=== PATIENT | female | born 1955 | race Caucasian/White ===

== ENCOUNTER → 2023-10-05 07:07 | Outpatient (REF) | payer OTHER, SELFPAY | LOC: MRI 07:07 | PROVIDERS: ATTENDING PHYSICIAN Orthopaedic Surgery; FAMILY PHYSICIAN Family Medicine | DX: M54.16 Radiculopathy, lumbar region (principal) | CPT/HCPCS: 72148 ==

== ENCOUNTER 2023-12-16 06:09 | Inpatient (IN) | payer OTHER, SELFPAY ==
--- NOTE | 2023-11-11 10:26 | CM ---
Patient is scheduled for lumbar spine surgery on 12/16/23. Spoke with patient prior to surgery via telephone. Introduced role of the Orthopedic Navigator. Patient reports that she lives with her daughter in a two story home. There are two steps to
enter and one step into the kitchen. She plans to stay on the first floor. She currently functions independently. She has a rolling walker, cane, hip kit and raised toilet seat. She had VN services through [facility] after her prior THR (done at an
outside facility). PCP is Donovan Lacy.
Discussed orthopedic program, post surgical plans and tentative plan for patient to return home when directed by surgeon. Patient is in agreement with tentative plan and will have support from her daughter when she goes home.
Plan: Orthopedic Navigator will remain available to assist with the care of patient and will reassess discharge needs after surgery.
[2023-11-25 07:41] VITALS: BMI 34.0
--- NOTE | 2023-11-25 08:37 | HPS.HSE ---
Family Physician
-
Family Physician: Donovan Lacy
Chief Complaint
-
Lumbar spondylolisthesis and stenosis with radiculopathy.
History of Present Illness
The patient is a 68 year old female presenting today for lumbar spondylolisthesis and stenosis with radiculopathy. The patient reports significant low back pain which radiates into her bilateral thighs. Her thigh pain is reported worse on
the right side. Her pain has progressively worsened over time despite multiple conservative treatment measures. These conservative treatment measures include self therapeutic exercises, activity modification, multiple epidural steroid injections,
medical management with Tylenol and NSAIDs, and the application of ice and/or heat. Her current pain greatly interferes with her activities of daily living and is overall impacting her quality of life. A recent lumbar MRI in September 2023 demonstrated
a 6 mm synovial cyst in the posterior spinal canal at L3-4, causing minimal compression along the cauda equina nerve roots. Also seen on MRI was significant degenerative disc and joint disease at L4-5, causing mild compression of the L4 nerve roots
bilaterally, right greater than left, and a slight increase in central canal and lateral recess stenosis. She was determined to be in need of a L3-L5 decompression and a L4-L5 transforaminal lumbar interbody fusion. She denies any current complaints
today such as chest pain, shortness of breath, palpitations, nausea, vomiting, diarrhea, lightheadedness, dizziness, cough, sore throat, or fever.
Medical History
Past Medical History
Past Medical History: Reports Other
Additional Past Medical History:
1. Lumbar spondylolisthesis and stenosis with radiculopathy.
2. Hypertension.
3. Mild tricuspid regurgitation.
4. GERD.
5. Colon polyps.
6. Diverticulosis.
7. Hepatic cyst.
8. Osteoarthritis, status post right total hip arthroplasty, 07/2022, by Dr. Eze Nieto.
9. Multinodular goiter.
10. Basal cell carcinoma, back, status post multiple excisions.
11. Osteopenia.
12. Mild hypercalcemia.
13. Obesity, BMI 34.0.
Past Surgical History: Reports Other
Additional Past Surgical History:
1. Right total hip arthroplasty, 07/2022, by Dr. Eze Nieto.
2. Right carpal tunnel release.
3. x2.
4. Hernia repair in infancy.
5. Right hemithyroidectomy.
6. Colonoscopy x2.
Social History
Tobacco: Non-smoker
Alcohol: Other (She reports social alcohol use on the weekends. )
Living: Other (She lives in a 2 story home with her daughter. )
Family History
Family History: Not pertinent
Allergies / Home Medications
Allergy/Medication List:
Home medications:
1. Aspirin 81 mg p.o. daily.
2. Cholecalciferol 125 mcg p.o. daily.
3. Benadryl 25 mg p.o. at bedtime.
4. Metoprolol Succinate 25 mg p.o. twice a day.
5. Centrum multivitamin 1 tablet p.o. daily.
6. Naproxen sodium 440 mg p.o. daily as needed.
7. Olmesartan-hydrochlorothiazide 40-25 mg, 1 tablet p.o. daily.
8. Probiotic 1 capsule p.o. daily.
Allergies: Percocet. Celebrex.
Adverse drug reactions: BRAYDON inhibitors (cough).
Review of Systems
-
A 12 point ROS was completed and negative except as noted: Yes
Physical Exam
Vital Signs
Blood pressure 138/98. Heart rate 70. Respirations 18. Pulse ox 97%.
Height 5 feet, 1 inch. weight 81.6 kg. BMI 34.0.
Physical Exam
General: Well Developed, Well Nourished and No Apparent Distress
HEENT: NormoCephalic, Moist mucous membranes, Atraumatic and PERRLA
Respiratory: Clear
Cardiac: Regular Rhythm
GI: Soft, Non Tender, Non Distended and Other (Obese. )
Musculoskeletal: Other (Lower back: No visible or palpable masses. No stepoffs. Midline and bilateral paraspinal lumbar tenderness to palpation. Negative straight leg test. Bilateral lower extremity strength 5/5. Deep tendon reflexes 2/2. Slightly
antalgic gait noted. )
Skin: Warm and Dry
Neuro: AO x 3 and Nonfocal/grossly intact
Laboratory Results
-
DIAGNOSTIC STUDIES as of 11/25/2023: White blood cell count 4.9. Hemoglobin 13.8. Platelet count 287,000. PT 12.8. INR 0.98. Sodium 136. Potassium 4.2. BUN 15. Creatinine 0.9. Glucose 94. Calcium 10.7. AST 35. ALT 28. Albumin 4.8. Urinalysis
unremarkable. MRSA screen negative.
EKG 11/25/2023: Normal sinus rhythm.
Echocardiogram 02/12/2018: Normal left ventricular size, wall thickness and systolic function. LV ejection fraction is 60%. Trace aortic regurgitation. Mild tricuspid regurgitation. 5-6cm cystic structure incidentally noted in the liver.
Impression/Plan
-
CLEARANCES:
1. Primary medical, Dr. Donovan Lacy, cleared.
Primary medical phone number: [phone].
2. Dental waived.
IMPRESSION/PLAN:
1. Lumbar spondylolisthesis and stenosis with radiculopathy in need of a L3-L5 decompression and a L4-L5 transforaminal lumbar interbody fusion with Dr. Rafia Marcus on 12/16/2023. The benefits and risks of the procedure have been explained to the
patient. The patient understands these risks and wishes to proceed.
2. DVT prophylaxis - Bilateral sequential compression devices and LAURA hose stockings. We will promote frequent and early ambulation as tolerated during admission. She was advised to hold her home baby Aspirin 1 week prior to surgery. This will be
resumed at the discretion of her surgeon post-operatively.
3. Pain management: The patient reports an adverse drug reaction of nausea and vomiting with Percocet in the past. Per patient preference, we will order Tylenol with Codeine as needed for moderate-severe post-operative pain.
4. Nausea/vomiting with general anesthesia: The patient was prescribed a Scopolamine patch to be used the morning of her procedure. Antiemetics such as Compazine and Zofran may also be used as needed post-surgery. The patient was advised to talk
with her anesthesiologist about this the morning of her procedure.
Patient's phone number: [phone].
Patient's contact (Rhoda Ghosh - Daughter): [phone].
[2023-11-25 08:47] LABS: Hematocrit 39.2 % (37.0-47.0); Hemoglobin 13.8 g/dL (12.0-16.0); Mean Corp Hgb Conc. 35.2 g/dL (33.0-37.0); Mean Corpuscular Hgb 31.8 pg (27.0-31.0); Mean Corpuscular Volume 90.3 fL (81.0-99.0); Mean Platelet Volume 9.8 fL (7.4-10.4); Platelet Count 287 10^3/uL (130-400); Red Blood Cell Count 4.34 10^6/uL (4.20-5.40); Red Cell Dist. Width 12.3 % (11.5-14.5); Urine Albumin Negative (Neg - Trace); Urine Bilirubin Negative (Negative); Urine Character Clear (Clear); Urine Color Yellow; Urine Glucose Negative (Negative); Urine Ketone Negative (Negative); Urine Leukocyte Negative (Negative); Urine Nitrite Negative (Negative); Urine Occult Blood Negative (Negative); Urine Urobilinogen Negative (Neg - 1+); White Blood Cell Count 4.9 10^3/uL (4.8-10.8)
[2023-11-25 09:20] LABS: ALT (SGPT) 28 U/L (0-35); AST (SGOT) 35 U/L (14-36); Albumin 4.8 g/dl (3.5-5.0); Alkaline Phosphatase 73 U/L (38-126); Blood Urea Nitrogen 15 mg/dl (7-17); Calcium 10.7 mg/dl (8.4-10.2); Carbon Dioxide 29 mmol/L (22-30); Chloride 97 mmol/L (98-107); Estimated Creatinine Clearance 58 ml/min; Glucose 94 mg/dl (70-99); Potassium 4.2 mmol/L (3.5-5.1); Sodium 136 mmol/L (135-145); Total Bilirubin 1.1 mg/dl (0.2-1.3); Total Protein 7.5 g/dl (6.3-8.2); eGFR > 60.00
[2023-11-25 09:22] LABS: INR 0.98; PT 12.8 Sec (11.4-14.6)
[2023-11-25 14:01] VITALS: BMI 34.0
[2023-12-16] VITALS (20 sets, daily range): BP systolic 30–131; BP diastolic 57–85; PULSE 89
[2023-12-16] MEDS: TYLENOL 1000 MG PO (06:43)
[2023-12-16] MEDS: LYRICA 150 MG PO (06:43)
[2023-12-16] MEDS: NORMOSOL-R 1000 IV ×2 (06:44→21:18)
[2023-12-16] MEDS: SKELAXIN 800 MG PO (06:44)
--- NOTE | 2023-12-16 13:27 | W.PN.UPDATE ---
Update Note
Progress Note Update
Lumbar spondylolisthesis and stenosis with radiculopathy s/p L3-L5 Decompression and L4-L5 TLIF w/ Dr Marcus 12/16/2023
DVT prophylaxis - b/l SCDs/TEDs
- Resume ASA when OK per surgeon
HTN - + parameters - monitor BP
GERD - add Pepcid HS
Mild tricuspid regurgitation
Colon polyps
Diverticulosis
Hepatic cyst
Osteoarthritis, status post right total hip arthroplasty, 07/2022, by Dr. Eze Nieto
Multinodular goiter
Basal cell carcinoma, back, status post multiple excisions
Osteopenia
Mild hypercalcemia
Obesity, BMI 34.0
[2023-12-16] MEDS: NORMOSOL-R 800 IV (14:39)
[2023-12-16] MEDS: COLACE 100 MG PO ×2 (17:02→20:03)
[2023-12-16] MEDS: FLORASTOR 250 MG PO (17:02)
[2023-12-16] MEDS: SENOKOT 17.1999999999999993 MG PO ×2 (17:02→20:03)
[2023-12-16] MEDS: ULTRAM 50 MG PO ×2 (17:02→21:19)
--- NOTE | 2023-12-16 17:30 | W.PN.UPDATE ---
Update Note
Progress Note Update
Orthopedic Surgery Post-op Note:
Patient is s/p L4-5 TLIF with L3-5 decompression. Seen earlier today post-op and again on floor. Following commands. Moving feet. Sensation intact in BL LE. Drain in place (sutured in). May get up as tolerated with assistance. PT/OT. DVT ppx with
SCDs (no anticoagulation for 24 hrs post-op). Pain control. �
[2023-12-16] MEDS: VITAMIN D3 (cholecalciferol) PO (17:41)
[2023-12-16] MEDS: LYRICA 75 MG PO (20:02)
[2023-12-16] MEDS: ANCEF 5 IV (20:03)
--- NOTE | 2023-12-16 20:09 | OR.RPT ---
Operative Report
Operative Report
Orthopedic Surgery Operative Report
Date of Surgery: 12/16/23
PREOPERATIVE DIAGNOSES:
1. Lumbar spinal stenosis with radiculopathy, L3-L5
2. Lumbar spondylolisthesis, L4-L5
3. Lumbar back pain
POSTOPERATIVE DIAGNOSES:
1. Lumbar spinal stenosis with radiculopathy, L3-L5
2. Lumbar spondylolisthesis, L4-L5
3. Lumbar back pain
PROCEDURE PERFORMED:
1. L4-L5 transforaminal lumbar interbody fusion, L4-5 posterolateral fusion
2. L4-L5 posterior instrumentation
3. L3-4 decompression
4. Placement of interbody cage at L4-L5
5. Use of autograft
6. Use of allograft
SURGEON: Rafia Marcus D.O.
DATA CODER OPERATOR: MIKE England, who helped with patient and limb positioning and retraction
ANESTHESIA: General endotracheal
COMPLICATIONS: None
ESTIMATED BLOOD LOSS: 150 cc
DRAINS: Hemovac
SPECIMEN: None
IMPLANTS:
All Globus implants
L4 screws- 6.5 x 45 (x2)
L5 screws- 6.5 x 40 (x2)
L4-L5 cage- 10 x 26, 8 degree expandable cage (sable)
50 mm rods x 2
INDICATION FOR SURGERY: This patient has an ongoing history of low back pain and bilateral lower extremity radiculopathy. Evaluation shows that she has the aforementioned diagnoses. She has failed extensive nonsurgical treatment. She has elected to
undergo the aforementioned surgical procedures. The risks, benefits, alternatives, and indications were discussed with the patient in detail. The risks include, but are not limited to bleeding requiring transfusion, infection, need for reoperation,
nerve or blood vessel damage, anesthetic risks, need for further surgery, continued pain, blood clots in the legs, heart attack, stroke, , dural tear, nerve root injury, graft migration, instrumentation failure, pseudoarthrosis, numbness,
weakness, paralysis. The patient understands the risks and elected to proceed. Informed consent was obtained preoperatively. The patient was optimized medically prior to surgery.
PROCEDURE IN DETAIL: The patient was identified in the preoperative holding area. The surgical site was appropriately marked. The patient was then brought to the operating room. General endotracheal anesthesia was achieved. The patient was
given routine preoperative intravenous antibiotics. The patient was turned to the prone position. Great care was taken to pad and protect all extremities and pressure points. The incision site was marked using fluoroscopy. The patient was prepped
and draped in the usual sterile manner. A preoperative surgical time-out was taken.
A standard midline approach to the lumbar spine was performed. The dissection was carried out to the spinal lamina. Dissection was then carried out laterally to expose the transverse processes of L4 and L5 bilaterally. The entry point for the
screws was identified. Bilateral L4 and L5 transverse processes were decorticated. Bilateral L4 and L5 pedicle screws were placed under fluoroscopic guidance as follows: The entry point for the first screw was identified anatomically. It was
entered using high-speed kylee. A pedicle finder was carefully advanced. The position was confirmed on fluoroscopy. A ball-tipped probe was used to confirm the pathway. An appropriately sized tap was then used to tap the pedicle. A ball-tipped
probe reconfirmed the pathway. An appropriate size screw was then placed. The same procedure was performed for each screw. All screws had appropriate fixation. Fluoroscopy confirmed appropriate position of all instrumentation. Triggered spinal
cord monitoring EMG was also used to confirm appropriate position of all instrumentation.
We now proceeded with the decompression. Attention was first turned to the L4-5 level. Laminectomy was carried out. The hypertrophic ligamentum flavum was removed. A right facetectomy was carried out. The disc space was exposed on the right. Next,
attention was turned to the L3-4 level. A laminectomy was carried out and the ligamentum flavum was resected. After completing the laminectomy, the facet cyst was encountered. Removal of the cyst was attempted but was unsuccessful since it was
adhered to the dura. To prevent inadvertent injury to the dura, decompression was performed around the cyst so that it was no longer causing a compressive effect on the dura. Once the decompression was completed, attention was turned to cage
placement. The thecal sac and exiting nerve root were retracted to expose the disc space at L4-5. The disc space was then prepared under fluoroscopic guidance. The disc space was copiously irrigated. Bone graft (autograft) was inserted into the disc
space. A cage of adequate size was then inserted and expanded under fluoroscopic guidance. Additional flowable bone graft was then placed into the cage and disc space. Rods of appropriate length were chosen and applied to the screws. Set screws were
applied. Set screws were final tightened. The surgical site was copiously irrigated.
The posterolateral fusion from L4-L5 was performed next. Bone was decorticated posterolaterally and bone graft (autograft and allograft) was applied at this site (left L4-5 facet and bilateral intertransverse spaces).
The decompression site was reexamined and was found to be widely patent. A deep drain was placed. The muscle and fascia were approximated using vicryl suture. Vancomycin powder was placed. The deep and superficial subcutaneous tissues were closed
using vicryl suture. Skin was approximated with monocryl suture. Dermabond was applied. Sterile dressing was applied. The drain was sutured in placed. The patient was turned to the supine position and awoken from anesthesia. The patient tolerated
the procedure well with no immediate complications.
Throughout the surgery, spinal cord monitoring including SSEPs and EMGs were used. All counts were correct at the end of the surgery.
Rafia Marcus D.O.
Orthopedic Surgery
[2023-12-16] MEDS: PEPCID 20 MG PO (21:18)
[2023-12-17] MEDS: TYLENOL #3 1 TABLET PO (01:18)
[2023-12-17] MEDS: ANCEF 5 IV (04:40)
[2023-12-17] MEDS: ULTRAM 50 MG PO ×2 (04:40→09:00)
[2023-12-17] MEDS: LYRICA 75 MG PO (06:18)
[2023-12-17 07:10] VITALS: BP 99/62
[2023-12-17 07:41] LABS: Hematocrit 27.5 % (37.0-47.0); Hemoglobin 9.5 g/dL (12.0-16.0)
[2023-12-17 08:41] LABS: Blood Urea Nitrogen 16 mg/dl (7-17); Calcium 8.8 mg/dl (8.4-10.2); Carbon Dioxide 27 mmol/L (22-30); Chloride 97 mmol/L (98-107); Estimated Creatinine Clearance 65 ml/min; Glucose 102 mg/dl (70-99); Sodium 131 mmol/L (135-145); eGFR > 60.00
--- NOTE | 2023-12-17 08:53 | CM ---
Addendum entered by Catalina Schmidt 12/17/23 11:20:
Patient did well in therapy. She has no concerns about discharge plans and has no skilled needs.
Original Note:
Reviewed chart and held rounds with PT, OT and RN. Patient had planned lumbar spine surgery with Dr. Marcus on 12/15. Met with patient at bedside. Confirmed information previously obtained for assessment and discussed discharge plans. Patient
continues to plan to return home at discharge. She will have support from her daughter when she goes home. Reviewed that she will work with PT/OT this morning and that discharge needs will depend on her functional status. However, no needs currently
identified.
Patient has a cane, raised toilet seat, hip kit and rolling walker at home.
Patient will use [facility] pharmacy for discharge prescriptions.
[2023-12-17] MEDS: SENOKOT 17.1999999999999993 MG PO (08:57)
[2023-12-17] MEDS: FLORASTOR 250 MG PO (08:57)
[2023-12-17] MEDS: VITAMIN D3 (cholecalciferol) 125 MCG PO (08:58)
[2023-12-17] MEDS: COLACE 100 MG PO (08:59)
[2023-12-17] MEDS: NORMOSOL-R 1000 IV (09:02)
--- NOTE | 2023-12-17 09:17 | W.PN.ORTHO ---
Today's Communication / Plan
-
Monitor voiding and BPs.
Reassess drain output later today.
D/c possible for later today pending clinical stability and minimal drain output.
Assessment
.
Distal Motor Intact: Yes
Dressing:
Clean, dry and intact.
Assessment:
Lumbar spondylolisthesis and stenosis with radiculopathy s/p L3-L5 Decompression and L4-L5 TLIF w/ Dr Marcus 12/16/2023
DVT prophylaxis - b/l SCDs/TEDs
- Resume ASA 24 hours post-op per surgeon
+ Hemovac drain - reassess output later today - will pull drain if safe to do so
HTN - + parameters - BPs mildly low in setting of anemia, dehydration, and post-op pain meds. Pt, however, asymptomatic
- Continue to monitor
GERD - added Pepcid HS
Post-op urinary retention requiring straight cath x1 - pt reports urge to go this AM - monitor voiding
- Flomax as indicated
Acute blood loss anemia - hgb 9.5 POD 1
- Asymptomatic, hemodynamically stable
- Did encourage iron rich foods to boost hgb post-op
Mild hyponatremia - asymptomatic
Mild tricuspid regurgitation
Colon polyps
Diverticulosis
Hepatic cyst
Osteoarthritis, status post right total hip arthroplasty, 07/2022, by Dr. Eze Nieto
Multinodular goiter
Basal cell carcinoma, back, status post multiple excisions
Osteopenia
Mild hypercalcemia
Obesity, BMI 34.0
Plan
.
Surgery / Date: L3-L5 Decompression & L4-L5 TLIF w/ Dr Marcus 12/15
DVT Prophylaxis: Other (b/l SCDs/TEDs)
Activity:
Out of bed.
PT/OT
Discharge Plan: Home
Subjective
.
.:
Patient resting comfortably in bed this AM.
Low back pain minimal w/ current pain meds.
Urinary retention overnight - straight cath x1.
Vital Signs and Labs
.
Vital Signs and Labs:
Lab Results
12/17/23 07:17
12/17/23 07:17
Temp Pulse Resp BP Pulse Ox
98.0 F 69 16 99/62 96
12/17/23 07:10 12/17/23 07:10 12/17/23 07:10 12/17/23 08:59 12/17/23 07:10
PT 12.8 Sec (11.4-14.6) 11/25/23 07:37
INR 0.98 11/25/23 07:37
Physical Exam
-
HEENT: No pallor, cyanosis, or jaundice. Throat clear.
NECK: Supple. No JVD.
RESPIRATORY: Lungs clear to auscultation.
CVS: S1, S2 normal. RRR.
ABDOMEN: Soft, non-tender. No distension. Obese.
EXTREMITIES: Strength equal, no calf pain with palpation/dorsiflexion. Calves soft.
INDUSTRIAL ROOFER HELPER: AOx3. No focal deficits. laundry clerk grossly intact
[2023-12-17 09:49] VITALS: BP 86/53; BP 93/53
[2023-12-17 10:34] VITALS: BP 111/56; BP 89/53; PULSE 89; O2SAT 95
[2023-12-17 11:10] VITALS: BP 88/65
--- NOTE | 2023-12-17 11:56 | W.PN.UPDATE ---
Update Note
Progress Note Update
Pt now voiding on own w/o the use of Flomax.
Hemovac drain output minimal over last several hours - will pull.
BPs still somewhat low but remaining stable. Pt asymptomatic. She will continue to trend BPs at home.
Hold parameters to continue for BP meds while on post-surgical narcotics.
Pt feels well and eager to go home today. Will d/c.
--- NOTE | 2023-12-17 12:01 | W.DS.TRANS ---
DC Summary - Tank Crewmember
-
Discharge Instructions:
Sleep Apnea Risk Low
Discharge Diagnosis/Procedures Lumbar spondylolisthesis and stenosis with
radiculopathy s/p L3-L5 Decompression and L4-L5
TLIF w/ Dr Marcus 12/16/2023
Diet Regular
Activity As tolerated
Additional Activity No heavy lifting >10 lbs.
Driving Restrictions Not until seen by your Dr
Bathing Restrictions OK to shower in 4 days.
Instructions:
Stand-Alone Forms: [facility] Lumbar Spine DC Instr
Changes to Home Medications: Yes
Discharge Medications:
DC Medications w/original date entered in [employer]
Probiotic 1 cap PO DAILY Gastrointestinal Issue 11/21/23
aspirin 81 mg tablet 81 mg PO DAILY Blood Clot Prevention/Tx 11/21/23
cholecalciferol (vitamin D3) 125 mcg (5,000 unit) tablet (Vitamin D3) 125 mcg PO DAILY Supplement 11/21/23
[id number] 8 mg-folic 400 mcg-K 50 mcg-lutein 300 mcg tablet (Centrum Silver Women) 1 tab PO DAILY Supplement 11/21/23
mupirocin 2 % topical ointment 1 applic intranasal BID #1 tube 11/25/23
scopolamine base 1 mg over 3 days transdermal patch 1 patch transdermal Q72H PRN nausea/vomiting #4 ea 11/25/23
acetaminophen 300 mg-codeine 30 mg tablet 1 - 2 tab PO Q6H PRN moderate-severe pain #30 tabs 12/17/23
acetaminophen 325 mg tablet 650 mg (2 x 325 mg) PO Q4HPRN PRN mild pain #60 tabs 12/17/23
diphenhydramine HCl 25 mg capsule 25 mg PO HSPRN PRN insomnia #1 cap 12/17/23
docusate sodium 100 mg capsule 100 mg PO BID #30 caps 12/17/23
famotidine 20 mg tablet 20 mg PO HS #30 tabs 12/17/23
metoprolol succinate 25 mg tablet,extended release 24 hr 25 mg PO BID #0 tabs 12/17/23
olmesartan 40 mg-hydrochlorothiazide 25 mg tablet 1 tab PO DAILY Blood Pressure #0 tabs 12/17/23
pregabalin 75 mg capsule (Lyrica) 75 mg PO BID #15 caps 12/17/23
sennosides 8.6 mg tablet (Senna Laxative) 17.2 mg (2 x 8.6 mg) PO BID #30 tabs 12/17/23
Home Medication Changes
acetaminophen 300 mg-codeine 30 mg tablet 1 - 2 tab PO Q6H PRN moderate-severe pain #30 tabs 12/17/23
acetaminophen 325 mg tablet 650 mg (2 x 325 mg) PO Q4HPRN PRN mild pain #60 tabs 12/17/23
diphenhydramine HCl 25 mg capsule 25 mg PO HSPRN PRN insomnia #1 cap 12/17/23
docusate sodium 100 mg capsule 100 mg PO BID #30 caps 12/17/23
famotidine 20 mg tablet 20 mg PO HS #30 tabs 12/17/23
pregabalin 75 mg capsule (Lyrica) 75 mg PO BID #15 caps 12/17/23
sennosides 8.6 mg tablet (Senna Laxative) 17.2 mg (2 x 8.6 mg) PO BID #30 tabs 12/17/23
Pending Results: No
[2023-12-17 12:30] VITALS: BP 98/60
== END 2023-12-17 13:14 | disposition home or self-care (01) | DRG 454 ==
LOC: 2 SOUTH 06:09
PROVIDERS: Physician Assistant; ADMITTING PHYSICIAN Orthopaedic Surgery; FAMILY PHYSICIAN Family Medicine
PROC: 0SG00AJ Fusion of Lumbar Vertebral Joint with Interbody Fusion Device, Posterior Approach, Anterior Column, Open Approach (ICD-10-PCS; 2023-12-16)
PROC: 0SG0071 Fusion of Lumbar Vertebral Joint with Autologous Tissue Substitute, Posterior Approach, Posterior Column, Open Approach (ICD-10-PCS; 2023-12-16)
PROC: 01NB0ZZ Release Lumbar Nerve, Open Approach (ICD-10-PCS; 2023-12-16)
DX: M43.16 Spondylolisthesis, lumbar region (principal); D62 Acute posthemorrhagic anemia; E87.1 Hypo-osmolality and hyponatremia; M48.061 Spinal stenosis, lumbar region without neurogenic claudication; M71.38 Other bursal cyst, other site; M51.16 Intervertebral disc disorders with radiculopathy, lumbar region; I10 Essential (primary) hypertension; I07.1 Rheumatic tricuspid insufficiency; K21.9 Gastro-esophageal reflux disease without esophagitis; Z96.641 Presence of right artificial hip joint; E04.2 Nontoxic multinodular goiter; M85.80 Other specified disorders of bone density and structure, unspecified site; E66.9 Obesity, unspecified; E83.52 Hypercalcemia; R33.9 Retention of urine, unspecified; E86.0 Dehydration; Z68.34 Body mass index [BMI] 34.0-34.9, adult; Z79.82 Long term (current) use of aspirin; Z79.899 Other long term (current) drug therapy
CPT/HCPCS: 36415; 72100; 76000; 80048; 80053; 81003; 85014; 85018; 85027; 85610; 86850; 86900; 86901; 87070; 93005; 97162; 97166; 97530; 97535; C1713; C1776

== ENCOUNTER → 2025-03-04 08:39 | Outpatient (REF) | payer SELFPAY | LOC: HWRAD 08:39 | PROVIDERS: ATTENDING PHYSICIAN Family Medicine | DX: E66.01 Morbid (severe) obesity due to excess calories (principal); E78.00 Pure hypercholesterolemia, unspecified | CPT/HCPCS: 75571 ==

== ENCOUNTER → 2025-04-04 15:13 | Outpatient (REF) | payer OTHER, SELFPAY | LOC: WDC 15:13 | PROVIDERS: ATTENDING PHYSICIAN Family Medicine | DX: Z12.31 Encounter for screening mammogram for malignant neoplasm of breast (principal) | CPT/HCPCS: 77063; 77067 ==